=== PATIENT | male | born 1985 | race Hispanic/Latino ===

== ENCOUNTER 2016-12-26 19:58 | Emergency (ER) | payer OTHER ==
[~2016-12-26] VITALS: Ht 172.7 cm; Wt 72.7 kg
[2016-12-26 20:03] VITALS: BP 127/79; PULSE 71; RESP 16; O2SAT 99
[2016-12-26] MEDS ORDERED: 0.9% Sodium Chloride 1,000 ML IV ONE (20:18)
--- NOTE | 2016-12-26 20:18 | ED.REPORT ---
HPI-General Illness Date of Service Dec 26, 2016 ED Provider: Catalino Márquez MD The patient is a 31 year old male who presents to the ED c/o discomfort in his lower abdomen intermittently for the past 2 weeks and increased in severity at 0300 this morning. He feels like there is a rumbling in his abdomen and bubbling sensation releived by passing flatus. The sensation woke the patient up from sleep at 0300 for an hour before resolving. He also reports back discomfort associated with his sx. He denies constipation, diarrhea, vomiting, fevers, and chills. He does not take any medication on a regular basis. Pt admits that he has been eating a lot of junk food lately and not drinking much water. Nursing Notes Stated Complaint: FUNNY FEELING IN STOMACH AND BACK PAIN Chief Complaint: Male Abdominal Pain Nursing Notes Reviewed: Yes Allergies: Coded Allergies: No Known Allergies (Unverified , 12/26/16) General Time Seen by MD: 20:14 Chief Complaint Other (abdominal discomfort) Hx Obtained From: Patient Arrived By: Walk-in Sudden in Onset?: Yes Onset Occurred: More than a week ago... (2 weeks) Symptom Duration: Since onset Location: : Abdomen Quality: Pressure Radiation: : Does not radiate Severity: Current: Mild Recent Healthcare: No recent doctor visit, No recent hospitalization Similar Sx Previous: No Past Medical History Past Medical History healthy Past Surgical History denies Smoking History Unknown if Ever Smoker Social History Other Social History: Good social support, Local resident Ambulatory Status Independent Review of Systems Full Review of Systems Constitutional: Denies: Chills, Fever GI: Reports: Abdominal pain ("discomfort" ), Denies: Constipation, Diarrhea, Nausea, Vomiting Musculoskeletal: Reports: Back pain Complete sys rev & neg: except as marked. Physical Exam Vital Signs Vital Signs Date Time Temp Pulse Resp B/P Pulse Ox O2 Delivery O2 Flow Rate FiO2 12/26/16 23:19 36.7 61 16 116/68 99 Room Air 12/26/16 20:03 36.6 71 16 127/79 99 Room Air Initial VS: Reviewed General/Constitutional: Awake, Alert, No acute distress, Cooperative, Not toxic appearing Head / Eyes: Atraumatic, Normocephalic, PERRL, EOMI Respiratory / Chest: Atraumatic, Breath sounds NL, Breath sounds = bilat, No respiratory distress Cardiovascular: Heart rate NL, Regular rhythm, Heart sounds NL Abdomen: Atraumatic, Soft, Non-tender, BS normoactive tolerates firm palpation in all 4 quadrants Upper Extremities Upper Extremity / MS: Atraumatic, Inspection NL, No deformity Lower Extremity / Pelvis / MS: Atraumatic, Inspection NL, No swelling, No deformity Right Leg / Calf: Negative: Swelling present..., Tenderness present... Left Leg / Calf: Negative: Swelling present..., Tenderness present... Skin: Atraumatic, Warm, Dry Neurologic: Oriented X3, Speech NL, No motor deficits Interpretation & Diagnostics Lab Results Interpretation Result Diagram: 12/26/16 2030 12/26/16 2030 Test 12/26/16 20:30 12/26/16 20:37 White Blood Count 9.3th/mm3 (3.8-10.1) Red Blood Count 5.34mil/mm3 (4.40-5.80) Hemoglobin 15.3g/dL (13.8-17.2) Hematocrit 43.0% (41.0-50.0) Mean Corpuscular Volume 80.5fL (81-100) Mean Corpuscular Hemoglobin 28.7pg (27.0-35.0) Mean Corpuscular Hemoglobin Concent 35.6% (32.0-37.0) Red Cell Distribution Width 12.4% (12.3-15.4) Platelet Count 197bil/L (150-400) Neutrophils (%) (Auto) 36.1% (40-74) Lymphocytes (%) (Auto) 30.7% (14-46) Monocytes (%) (Auto) 5.3% (4-12) Eosinophils (%) (Auto) 27.0% (0-5) Basophils (%) (Auto) 0.8% (0-3) Sodium Level 137mEq/L (134-144) Potassium Level 3.6mEq/L (3.5-5.2) Chloride Level 100mEq/L (97-108) Carbon Dioxide Level 24mmol/L (18-29) Blood Urea Nitrogen 18mg/dL (6-20) Creatinine 1.07mg/dL (0.76-1.27) Estimat Glomerular Filtration Rate 87mL/min (>59) Glucose Level 111mg/dL (60-99) Calcium Level 9.6mg/dL (8.5-10.1) Total Bilirubin 0.4mg/dL (0.0-1.2) Aspartate Amino Transf (AST/SGOT) 18U/L (0-50) Alanine Aminotransferase (ALT/SGPT) 12U/L (0-44) Alkaline Phosphatase 61U/L (25-150) Total Protein 7.2g/dL (6.4-8.4) Albumin 4.2g/dL (3.4-5.0) Lipase 56U/L (13-60) Hold Fernandez Top Tube Received (Received) Hold Urine Received (Received) Re-Eval/Medical Decision Med Decision/Clinical Course The patient is a 31 year old male who presents to the ED c/o discomfort in his lower abdomen intermittently for the past 2 weeks and increased in severity at 0300 this morning. He feels like there is a rumbling in his abdomen and bubbling sensation releived by passing flatus. The sensation woke the patient up from sleep at 0300 for an hour before resolving. He also reports back discomfort associated with his sx. He denies constipation, diarrhea, vomiting, fevers, and chills. He does not take any medication on a regular basis. Pt admits that he has been eating a lot of junk food lately and not drinking much water. History of the emergency department the patient is afebrile stable vital signs and examination as above. He was treated with Zofran and IV fluids and reported complete resolution of his symptoms. Laboratory studies notable as below: CBC unremarkable CMP unremarkable Lipase normal limits Serial abdominal examinations remained benign. The patient not consistent with acute surgical intra-abdominal process. Patient has no abdominal tenderness. No evidence of bowel obstruction. I do not feel that abdominal imaging studies are indicated. Patient advised to make dietary changes. He will return right away if he develops vomiting, inability to pass flatus, abdominal pain or any other concerning signs or symptoms. Prior to discharge follow-up and return precautions were reviewed in detail with the patient who verbalized understanding and agreement with the plan. The patient was discharged in stable condition. Time of Eval: 20:48 Re-Evaluation/Progress Note: Pt given IV fluids and hydromorphone. Time of Eval: 22:58 Re-Evaluation/Progress Note: Pt rechecked. He is improved and feeling better. Plan for discharge. Counseled Regarding: Diagnosis, Lab results, Need for follow-up, When/why to return to ED Discharge & Departure Primary Impression: Abdominal discomfort Additional Impressions: Gas pain Flatus Disposition: Home Discharge Condition All VS Reviewed: Yes Condition: Stable Additional Instructions: Thank you for seeking care at the emergency room. Our primary goal today in the ED was to evaluate you for any life-threatening conditions. Your evaluation was reassuring. All of your labs are normal. Stay away from junk food and eat more fiber and vegetables. Drink plenty of water and stay hydrated. Follow up with your primary doctor as needed. You should return to the ED immediately for any new or worsening symptoms. Thank you for letting us partake in your care today. Referrals: Sriram Chilel MD (PCP) Scribe Attestation Portion of this note were transcribed by Vidih Nettles. I, Dr. Márquez, personally performed the history, physical exam, and medical decision-making: I reviewed and confirmed the accuracy for the information in the transcribed note. Signed by: srinivas Sherman, 12/26/16 2300 copies to: Sriram Chilel MD, Beck O MD Dec 26, 2016 20:18 Vidhi Nettles Dec 26, 2016 21:05
[2016-12-26] MEDS ORDERED: Ondansetron 2 mg/mL 2 mL Inj IVPUSH ONE (20:20)
[2016-12-26 20:39] LABS: BASOPHILS % (AUTO) 0.8 % (0-3); MONOCYTES % (AUTO) 5.3 % (4-12); Mean Corpuscular Hemoglobin 28.7 pg (27.0-35.0); Mean Corpuscular Volume 80.5 fL (81-100); NEUTROPHILS % (AUTO) 36.1 % (40-74); Platelet Count 197 bil/L (150-400)
[2016-12-26 23:19] VITALS: BP 116/68; PULSE 61; RESP 16; O2SAT 99
== END 2016-12-26 23:19 | disposition home or self-care (01) ==
LOC: SED 19:58
DX: R14.1 Gas pain (principal); R14.3 Flatulence
CPT/HCPCS: 36415; 80053; 83690; 85025; 96361; 96374; 99284; J2405; J7030

== ENCOUNTER 2017-03-24 16:48 | Emergency (ER) | payer OTHER ==
[~2017-03-24] VITALS: Ht 172.7 cm; Wt 70.0 kg
[2017-03-24 17:21] VITALS: BP 125/83; PULSE 93; RESP 16; O2SAT 99
--- NOTE | 2017-03-24 19:21 | ED.REPORT ---
HPI-Extremity Problem Lower Date of Service Mar 24, 2017 ED Provider: Catalino Márquez MD The pt is a 31 year old male with no pertinent medical history who presents to the ED complaining of a possible infection. 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 He noticed swelling the next morning and the area became red and painful today. The pt denies other trauma. Nursing Notes Stated Complaint: HURT KNEE Chief Complaint: Extremity Trauma Nursing Notes Reviewed: Yes Allergies: Coded Allergies: No Known Allergies (Unverified , 03/24/17) General Time Seen by MD: 19:12 Chief Complaint Other (possible infection) Hx Obtained From: Patient Arrived By: Walk-in Onset Occurred: 2 days ago Symptom Duration: Since onset Recent Healthcare: Recent doctor visit Similar Sx Previous: No Past Medical History Past Medical History none reported Past Surgical History none reported Smoking History Unknown if Ever Smoker Social History Other Social History: Good social support, Local resident Ambulatory Status Independent Review of Systems Review of Systems Note: area of redness and swelling near right knee Musculoskeletal: Reports: Extremity pain, Denies: Back pain, Neck pain Skin: Denies Rash Complete sys rev & neg: except as marked. Respiratory: Denies: Non-productive cough, Shortness of breath Cardiovascular: Denies: Chest pain GI: Denies: Abdominal pain, Vomiting Physical Exam Initial Vital Signs Vital Signs (First) Date Time Temp Pulse Resp B/P Pulse Ox O2 Delivery O2 Flow Rate FiO2 03/24/17 17:21 37.5 93 16 125/83 99 Room Air Initial VS: Reviewed Lower Extremity / Pelvis / MS: Neurologic intact, Vascular intact right knee atraumatic with full range of motion neurovascularly intact distally proximal anterior jacinto has a 5 cm x 4 cm region of erythema and induration no fluctuance or evidence of abscess no joint space effusion region of erythema does not cross over the joint space Ankle / Foot: Atraumatic, Full range of motion General/Constitutional: Awake, Alert Respiratory / Chest: Atraumatic, Breath sounds NL, Breath sounds = bilat, No respiratory distress Cardiovascular: Heart rate NL, Regular rhythm, Heart sounds NL, No gallop, No murmurs, No rubs Skin: Color NL, Warm, Dry Neurologic: Oriented X3, Speech NL, No motor deficits, No sensory deficits Head / Eyes: Atraumatic, Normocephalic, PERRL, EOMI ENT: Atraumatic, Airway patent, Mucous membranes moist Neck: Atraumatic, Supple, Full range of motion Abdomen: Atraumatic, Soft, Non-tender, No distention Back: Atraumatic, Full range of motion Upper Extremity / MS: Atraumatic, Full range of motion Psychiatric: Affect NL, Mood NL Interpretation & Diagnostics X-Ray Interpretation Xray Interpretation: IMPRESSION: Suggestion of soft tissue swelling anterior to the patellar tendon. No other abnormality is seen in the right knee. Dictated by: Ramses Aj M.D. on 03/24/2017 at 20:03 Approved by: Ramses Aj M.D. on 03/24/2017 at 20:04 X-Ray Ordered: Knee right Interpretation / Wet Read by: Interpret - Radiologist Re-Eval/Medical Decision Med Decision/Clinical Course The patient is a generally healthy 31-year-old male who presents with erythema and swelling beneath his right knee after puncturing his skin with a screw at work. Examination reveals a patch of induration and erythema beneath his right knee. There is no joint effusion, joint pain, joint swelling or findings suggestive of septic arthritis. Right Knee X-Ray: IMPRESSION: Suggestion of soft tissue swelling anterior to the patellar tendon. No other abnormality is seen in the right knee. The patient has no pain with flexion and extension of his knee in the region of erythema seems clearly defined and located to the skin beneath the knee. At this time I see no evidence of abscess, deep soft tissue infection, ligamentous involvement or other more concerning process. There is no evidence of foreign body on x-ray. I feel that treatment with oral antibiotics and close follow-up with his primary care physician is reasonable. He has been placed on a course of clindamycin and advised to follow closely with his primary care doctor. He will return immediately for fevers, increased swelling, increased pain, pain with walking, pain with range of motion or swelling of his knee joint. Prior to discharge follow-up and return precautions were reviewed in detail with the patient who verbalized understanding and agreement with the plan. The patient was discharged in stable condition. Source of Hx: Old records Re-Evaluation/Progress : Time of Eval: 21:00 Patient Status: Condition improved Re-Evaluation/Progress Note: Pt rechecked, who is resting. The diagnosis and plan for discharge are discussed. The pt understands and agrees with the plan. All questions are addressed at this time. Counseled Regarding: Diagnosis, Lab results, Need for follow-up, When/why to return to ED Discharge & Departure Impression: Primary Impression: Cellulitis Site of cellulitis: extremity Site of cellulitis of extremity: lower extremity Laterality: right Qualified Code: L03.115 - Cellulitis of right lower limb Additional Impression: Puncture wound Disposition: Home Discharge Condition All VS Reviewed: Yes Condition: Stable Patient Instructions: Cellulitis (ED) Additional Instructions: Thank you for seeking care at the emergency room. Our primary goal today in the Emergency Department was to evaluate you for any life-threatening conditions. Your evaluation was reassuring. You will be discharged with a prescription for Clindamycin. Take this medication as directed. You should follow-up with your primary doctor in the next week. You should return to the Emergency Department immediately if you develop worsening redness/swelling, fevers, vomiting, shortness of breath, weakness or any other concerning signs or symptoms. Thank you for letting us partake in your care today. Referrals: Manuelito Mcmahon Attestation Portions of this note were transcribed by Sarah Hernandez. I, Dr. Márquez personally performed the history, physical exam and medical decision-making; I reviewed and confirmed the accuracy of the information in the transcribed note. copies to: Manuelito Mcmahon Beck O MD Mar 24, 2017 19:21 SARAH HERNANDEZ Mar 24, 2017 20:57
--- NOTE | 2017-03-24 20:06 | DRSVH ---
PROCEDURE: X-RAY RIGHT KNEE, THREE VIEWS ([id number]) INDICATIONS: pain/swelling TECHNIQUE: 3 views of the knee were acquired. COMPARISON: None. FINDINGS: Bones: No fractures or dislocations. No suspicious bony lesions. Soft tissues: No joint effusion. No suspicious soft tissue calcifications. Appears to be some sligh t prominence of soft tissues anterior to the patellar tendon. IMPRESSION: Suggestion of soft tissue swelling anterior to the patellar tendon. No other abnormality is seen in the right knee. Dictated by: Ramses Aj M.D. on 03/24/2017 at 20:03 Approved by: Ramses Aj M.D. on 03/24/2017 at 20:04
[2017-03-24 21:15] VITALS: BP 116/78; PULSE 91; O2SAT 98
[2017-03-24] MEDS ORDERED: _Clindamycin 150 mg Capsule PO SCH (21:30)
== END 2017-03-24 21:16 | disposition home or self-care (01) ==
LOC: SED 16:48
DX: S81.831A Puncture wound without foreign body, right lower leg, initial encounter (principal); L03.115 Cellulitis of right lower limb; W26.8XXA Contact with other sharp object(s), not elsewhere classified, initial encounter; Y93.89 Activity, other specified; Y99.0 Civilian activity done for income or pay; Y92.59 Other trade areas as the place of occurrence of the external cause